=== PATIENT | female | born 1945 ===

== ENCOUNTER 2018-11-13 08:50 | Day surgery (SDC) | payer OTHER ==
[~2018-11-13] VITALS: Ht 144.8 cm; Wt 75.3 kg
[2018-11-13] VITALS (9 sets, daily range): BP systolic 109–129; BP diastolic 64–90
[2018-11-13] MEDS ORDERED: fentaNYL 100 mcg/2 mL ONE (10:07)
[2018-11-13] MEDS ORDERED: Lidocaine 1% 10mg/ml/Epi 0.005mg/ml 30ml vial INJ ONE (10:08)
[2018-11-13] MEDS ORDERED: Bupivacaine w/Epi 0.5% 30ml Vial INJ ONE (10:08)
[2018-11-13] MEDS ORDERED: Bacitracin Oint 15gm Tube TOPIC ONE (10:08)
[2018-11-13] MEDS ORDERED: Propofol 200mg/20ml IV ONE (10:15)
[2018-11-13] MEDS ORDERED: Lidocaine 1% MPF 10mg/ml 5ml ONE (10:15)
[2018-11-13] MEDS ORDERED: METFORMIN HCL500 M4 ORAL (10:21)
[2018-11-13] MEDS ORDERED: AMLODIPINE BESY10 MG ORAL (10:21)
[2018-11-13] MEDS ORDERED: LEVOTHYROXINE125 MCG ORAL (10:21)
--- NOTE | 2018-11-13 10:30 | NUR ---
IV LR WAS STARTED BY JOHN GRAVES RN. NO S/S OF INFILTRATION.
--- NOTE | 2018-11-13 10:50 | Pre-Procedure Note/Attestation ---
Pre-Procedure Note/Attestation Complete Prior to Procedure Planned Procedure: left Procedure Narrative: Left breast wire localized partial mastectomy with sentinel lymph node biopsy Indications for Procedure Pre-Operative Diagnosis: left breast cancer Attestation I attest that I discussed the nature of the procedure; its benefits; risks and complications; and alternatives (and the risks and benefits of such alternatives ), prior to the procedure, with the patient (or the patient's legal claim representative). I attest that, if there was a reasonable possibility of needing a blood transfusion, the patient (or the patient's legal claim representative) was given the [facility] standardized written summary, pursuant to the [employer] [place] Blood Safety Act ([place] Health and Safety Code # 1645, as amended). I attest that I re-evaluated the patient just prior to the surgery and that there has been no change in the patient's H&P, except as documented below: Toni Garcia Nov 13, 2018 10:50
--- NOTE | 2018-11-13 10:50 | History & Physical ---
History of Present Illness General Date patient seen: Nov 13, 2018 Present Illness HPI 73F with biopsy proven left breast cancer. Initially had mammogram on 03/14/18 which noted left breast lesion, then mammo and US on 04/23/18 which noted same lesion better, then MRI on 05/28/2018 which noted lesion at upper outer 12 oclock , then US on 06/19/18. 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 was referred to me in Oct for surgical eval and intervention. Scheduled today for Left breast wire loc and SLNbx Allergies: Coded Allergies: No Known Allergies (Unverified , 11/13/18) Medication History Scheduled Amlodipine Besylate* (Amlodipine Besylate*), 10 MG ORAL DAILY, (Reported) Levothyroxine Sodium* (Levothyroxine Sodium*), 100 MCG ORAL DAILY, (Reported) Metformin Hcl (Metformin Hcl Er), 500 MG ORAL DAILY, (Reported) Patient History History Provided By: Patient, Family Member Healthcare decision maker Resuscitation status Advanced Directive on File Past Medical/Surgical History Past Medical/Surgical History: (1) Breast cancer, left Review of Systems Review of Symptoms General ROS: no weight loss or fever Psychological ROS: no depression or mood changes, no memory loss Ophthalmic ROS: no visual changes or eye irritation ENT ROS: no nasal congestion, hearing loss, dizziness Allergy and Immunology ROS: no allergic symptoms or urticaria Hematological and Lymphatic ROS: no swollen glands, unusual bleeding or bruising Endocrine ROS: no polyuria, polydipsia, weight changes, temperature intolerance Respiratory ROS: no cough, shortness of breath, or wheezing Cardiovascular ROS: no chest pain or dyspnea on exertion Gastrointestinal ROS: denies abdominal pain, no bright red blood in stool. Musculoskeletal ROS: no myalgias or arthralgias Neurological ROS: no TIA or stroke symptoms Dermatological ROS: no new or changing skin lesions, rashes or pruritis Physical Exam Physical Exam General appearance: alert, cooperative, no distress, appears stated age Head: Normocephalic, without obvious abnormality, atraumatic Eyes: conjunctivae/corneas clear. PERRL, EOM's intact. Fundi benign Throat: Lips, mucosa, and tongue normal. Teeth and gums normal Neck: supple, symmetrical, trachea midline, no adenopathy, thyroid: not enlarged, symmetric, no tenderness/mass/nodules, no carotid bruit and no JVD Lungs: clear to auscultation bilaterally Heart: regular rate and rhythm, S1, S2 normal, no murmur, click, rub or gallop Abdomen: soft, non-tender. Bowel sounds normal. No masses, no organomegaly Extremities: extremities normal, atraumatic, no cyanosis or edema Pulses: 2+ and symmetric Skin: Skin color, texture, turgor normal. No rashes or lesions Neurologic: Grossly normal Last 24 Hour Vital Signs Date Time Temp Pulse Resp B/P (MAP) Pulse Ox O2 Delivery O2 Flow Rate FiO2 11/13/18 10:05 97.7 85 20 129/90 95 Room Air 11/13/18 10:02 Room Air Height (Feet): 4 Height (Inches): 9.00 Weight (Pounds): 166 Assessment/Plan Problem List: (1) Breast cancer, left Assessment & Plan: left breast cancer upper outer 12 oclock lesion. non palpable. bx proven Ca with receptors as above recommend wire localization partial mastectomy with sentinel lymph node biopsy will follow with oncology after wire loc performed this AM to OR today NPO IV fluids IV Abx Consent thank you ICD Codes: C50.912 - Malignant neoplasm of unspecified site of left female breast SNOMED: [id number] Toni Gacria Nov 13, 2018 10:50
[2018-11-13] MEDS ORDERED: ceFAZolin sod 2 GM in D5W 110 ML IV ONE (11:00)
[2018-11-13] MEDS ORDERED: Sterile Water Irrig 1000ml IRRIG ONE (11:00)
[2018-11-13] MEDS ORDERED: LR 1000ml ONE (11:00)
[2018-11-13] MEDS ORDERED: ProvayBlue 5mg/ml 10ml amp INJ SCH (11:35)
[2018-11-13] MEDS ORDERED: NS Irrig 1000ml IRRIG ONE (11:40)
--- NOTE | 2018-11-13 11:53 | Anethesia Preoperative Eval ---
Anesthesia Pre-op PMH/ROS General Date of Evaluation: Nov 13, 2018 Time of Evaluation: 10:40 Anesthesiologist: Reginaldo ASA Score: ASA 2 Mallampati Score Class I : Soft palate, uvula, fauces, pillars visible Class II: Soft palate, uvula, fauces visible Class III: Soft palate, base of uvula visible Class IV: Only hard plate visible Mallampati Classification: Class II Surgeon: Kelly Diagnosis: L breast CA Surgical Procedure: L mastectomy Anesthesia History: none Family History: no anesthesia problems Allergies: Coded Allergies: No Known Allergies (Unverified , 11/13/18) Medications: see eMAR Patient NPO?: Yes Past Medical History Cardiovascular: Reports: HTN - Stable; Denies: CAD, ID, valve dz, arrhythmia, other Pulmonary: Denies: asthma, COPD, PUMA, other Gastrointestinal/Genitourinary: Reports: GERD; Denies: CRI, ESRD, other Neurologic/Psychiatric: Reports: depression/anxiety; Denies: dementia, CVA, TIA, other Endocrine: Reports: DM - borderline; Denies: hypothyroidism, steroids, other HEENT: Denies: cataract (L), cataract (R), glaucoma, CHINIK (L), CHINIK (R), other Hematology/Immune: Denies: anemia, DVT, bleeding disorder, other Musculoskeletal/Integumentary: Reports: OA; Denies: RA, DJD, DDD, edema, other Other: obesity PMH Narrative: as above PSxH Narrative: Hysterectomy Anesthesia Pre-op Phys. Exam Physician Exam Last Vital Signs Date Time Temp Pulse Resp B/P (MAP) Pulse Ox O2 Delivery O2 Flow Rate FiO2 11/13/18 10:05 97.7 85 20 129/90 95 Room Air Constitutional: NAD Neurologic: CN 2-12 intact Cardiovascular: RRR, no M/R/G Respiratory: CTA Gastrointestinal: other - obesity Airway Exam Mallampati Score: Class II MO: limited Neck: stiff ROM: limited Teeth: missing Dentures: no upper, no lower Anesthesia Pre-op A/P Labs see chart Risk Assessment & Plan Assessment: ASA 2 Plan: GA with LMA Status Change Before Surgery: No Pre-Antibiotics Drug: ANcef 1gr Given Within 1 Hr of Incision: Yes Time Given: 11:18 Vignesh Hair MD Nov 13, 2018 11:53
[2018-11-13] MEDS ORDERED: LR 1000ml 1,000 ML IVLG SCH (11:54)
[2018-11-13] MEDS ORDERED: Ketorolac 30mg Inj IV PRN (12:00)
[2018-11-13] MEDS ORDERED: DiphenhydrAMINE 50mg/ml Inj IVP PRN (12:00)
[2018-11-13] MEDS ORDERED: Hydromorphone 0.5mg/0.5ml inj IVP PRN (12:00)
[2018-11-13] MEDS ORDERED: Morphine Sulfate 10mg/ml Inj ONE (12:05)
--- NOTE | 2018-11-13 12:36 | Brief Operative Note ---
Immediate Post Operative Note Operative Note Pre-op Diagnosis: left breast cancer Procedure: wire localized left breast partial mastectomy left axillary lymph node dissection Surgeon: judith Anesthesiologist: karen Anesthesia: general, local Specimen: yes Complications: none Condition: stable Fluids: see records Estimated Blood Loss: minimal Drains: none Implant(s) used?: No Toin Garcia Nov 13, 2018 12:36
[2018-11-13] MEDS ORDERED: HYDROmorphone 1mg/ml Carpuject SUBQ PRN (12:45)
[2018-11-13] MEDS ORDERED: Tylenol #3 tab (300mg/30mg) ORAL PRN (12:45)
[2018-11-13] MEDS ORDERED: HYDROcodone/Acetamin 5/325 tab ORAL PRN (12:45)
--- NOTE | 2018-11-13 12:49 | Immediate Post-Op Evaluation ---
Immediate Post-Op Evalulation Immediate Post-Op Evalulation Procedure: L breast partial mastectomy with axillary l/n dissection Date of Evaluation: Nov 13, 2018 Time of Evaluation: 12:48 IV Fluids: 500 Blood Products: none Estimated Blood Loss: >50 Urinary Output: none Blood Pressure Systolic: 116 Blood Pressure Diastolic: 72 Pulse Rate: 84 Respiratory Rate: 20 O2 Sat by Pulse Oximetry: 99 Temperature (Fahrenheit): 97.6 Pain Score (1-10): 2 Nausea: No Vomiting: No Complications none Patient Status: reacts, patent, none Hydration Status: adequate Vignesh Hair MD Nov 13, 2018 12:49
[2018-11-13] MEDS ORDERED: D5 1/2NS 1,000 ML IV SCH (17:00)
--- NOTE | 2018-11-13 22:45 | Operative Note - Dictated ---
DATE OF OPERATION: 11/13/2018 PREOPERATIVE DIAGNOSIS: Left breast cancer with axillary nodes. POSTOPERATIVE DIAGNOSIS: Left breast cancer with axillary nodes. OPERATION PERFORMED: 1. Wire localized left breast partial mastectomy/biopsy. 2. Left breast axillary lymph node dissection with lymph node biopsy. ATTENDING SURGEON: Toni Garcia M.D. CYLINDER INSPECTOR AND TESTER: None. ANESTHESIOLOGIST: Vignesh Hair M.D. ANESTHESIA: General DRAFTER HEATING AND VENTILATING plus local. ESTIMATED BLOOD LOSS: Minimal. IV FLUIDS: Please see anesthesia records. COMPLICATIONS: None. DRAINS: None. COUNTS: Sponge and needle count correct x2. SPECIMENS: 1. Left breast biopsy with needle localization. 2. Left axillary lymph nodes. ANTIBIOTICS: 2 g Ancef given 1 hour prior to cut time. WOUND CLASSIFICATION: Class I. INDICATIONS FOR PROCEDURE: This is a 73-year-old female who was referred to myself by the patient's oncologist, Dr. Sarah Smith for evaluation of a left breast cancer. The patient was initially identified to have an abnormal left breast mass in February 2018 and subsequently had multiple imaging until biopsy was performed later. Biopsy was performed, which identified an invasive ductal carcinoma, ER positive, [place] positive, and HER2 negative, well differentiated. The patient was seen by her oncologist who recommended surgical intervention. In reviewing the patient's history, it was discussed with oncologist that the patient does also have identifiable lymph nodes in both axillary basin as well as some pelvic lymph nodes, which were abnormal as well. There was considerations for possible lymphoma for this patient. Given these findings, recommendations were initially for the patient to have wire localized partial mastectomy/biopsy followed by axillary lymph node, sentinel lymph node biopsy and biopsies of the abnormal lymph nodes in the left axilla. Risks, benefits, and alternatives were discussed with the patient in detail, who expressed understanding and consented to surgery. A long decision was had with the patient's family as well regarding preoperative findings and operative plan. OPERATIVE NOTE: The patient was taken to the operating room and placed on the operating table in supine position with bilateral arms out. All bony prominences were well padded. SCDs were placed. Preoperative time-out was taken out identifying the patient, procedure, operative staff, and surgical staff. General anesthesia was induced and the patient was intubated. The patient was given 2 g of Ancef IV one hour prior to cut time. The left chest, breast, and axilla and arm prepped and draped in the standard surgical fashion. Preoperative needle localization was performed by the [facility]. Localizing studies were given to me and reviewed preoperatively and intraoperatively as necessary. By comparing the localization studies with the direction skin entry sites of the needle, trajectory of the location of the tumor was visualized. A transverse incision was planned in such a way to minimize dissection to reach the area of interest. Local anesthesia was infiltrated in the proposed skin incision. An incision was made through the proposed skin incision site predetermined using a fresh #10 scalpel. Incision was carried out to make flaps that were raised in the location of wire to be obtained. The wire was delivered through the dissection field. Dissection was carried down circumferentially around the wire. Care was made to include the entire localizing needle as well as a wide margin of grossly normal tissue. The specimen in its entirety was marked with wire being lateral and sutures for superior, inferior and deep margins. The specimen was sent back by [facility] for localization studies to confirm that the received specimen had entire target tissue that was to be resected. Confirmation was obtained. The wound then was irrigated and cleansed and hemostasis was obtained with electrocautery. The wound was closed in a two-layer fashion beginning with interrupted 3-0 Vicryl dermal sutures followed by subcuticular 4-0 Monocryl running suture. No attempt was made to close the space. Skin glue and Steri-Strips were applied. Following this, attention was turned to the left axilla for a node biopsy given the patient had abnormal nodes in both axilla and the pelvis, care was taken to take some of the large nodes that were identified. Preoperatively, methylene blue was infiltrated around the areola and near the tumor and allowed to migrate towards the left axilla. A local anesthetic was infiltrated and a transverse incision was made in the left axilla using a fresh #15 scalpel and carried down with electrocautery and blunt dissection. Once this was completed, palpable lymph nodes were clearly identified and therefore dissection was carried around the level of these palpable lymph nodes. There were superficial and deep palpable lymph nodes identified with the deep lymph nodes being large than the superficial ones. Significant area of fair amount of lymph nodes from the left axilla were taken using a Thunderbeat energy device for hemostasis and division. Once the area of the lymph node basin was excised, it was felt that adequate lymph nodes were obtained given their size and visibility. Decision was made not to proceed with a formal complete axillary lymph node dissection and the amount of tissue received was appropriate. A significant portion of the blue methylene dye was not noted within the wound bed and was surgically evaluated, but seemed to have not made it completely. At this time, specimen was sent to pathology for review. The left axilla was irrigated with saline and hemostasis obtained with electrocautery and Thunderbeat energy device as necessary. The skin incision was reapproximated in a two-layer fashion beginning with 3-0 Vicryl dermal suture followed by 4-0 Monocryl running subcuticular suture. Skin glue and Steri-Strips were applied. Dressings were applied followed by firm bra. The patient tolerated the procedure well, was extubated and taken to postanesthetic care unit in stable condition. Toni Garcia M.D. DR: BETTINA JOB#: [id number] CC:
[2018-11-19 08:59] VITALS: BP 132/56
--- NOTE | 2018-11-19 08:59 | 48 Hour Post Anesthesia Eval ---
Post Anesthesia Evaluation Procedure: L breast partial mastectomy with axillary l/n dissection Date of Evaluation: Nov 13, 2018 Time of Evaluation: 15:30 Blood Pressure Systolic: 132 0: 56 Pulse Rate: 74 Respiratory Rate: 20 Temperature (Fahrenheit): 97.5 O2 Sat by Pulse Oximetry: 98 Airway: patent Nausea: No Vomiting: No Pain Intensity: 2 Hydration Status: adequate Cardiopulmonary Status: stable Mental Status/LOC: patient returned to baseline Follow-up Care/Observations: n/a Post-Anesthesia Complications: none Follow-up care needed: ready to discharge Vignesh Hair MD Nov 19, 2018 08:59
== END 2018-11-13 14:45 | disposition home or self-care (01) ==
LOC: SUR 08:50
DX: C50.412 Malignant neoplasm of upper-outer quadrant of left female breast (principal); Z17.0 Estrogen receptor positive status [ER+]; Z79.899 Other long term (current) drug therapy; I10 Essential (primary) hypertension; K21.9 Gastro-esophageal reflux disease without esophagitis; F32.9 Major depressive disorder, single episode, unspecified; F41.9 Anxiety disorder, unspecified; E11.9 Type 2 diabetes mellitus without complications; M19.90 Unspecified osteoarthritis, unspecified site; Z90.710 Acquired absence of both cervix and uterus; Z68.35 Body mass index [BMI] 35.0-35.9, adult
CPT/HCPCS: 19301; 38525; 82962; J0690; J1170; J1885; J2270; J2704; J3010; Q9968; 94003; 94150